=== PATIENT | female | born 1990 | race Native Hawaiian/Other Pacific Islander ===

== ENCOUNTER 2016-08-30 13:54 | Emergency (ER) | payer OTHER ==
[~2016-08-30] VITALS: Ht 157.5 cm; Wt 72.6 kg
[~2016-08-30 13:54] MED LIST: OMEPRAZOLE20 M2 OR; TRIM800T12 PO
[2016-08-30 14:35] LABS: PLATELET COUNT 289 K/uL (152-353)
[2016-08-30 14:54] LABS: POTASSIUM 3.7 mmol/L (3.6-5.2); SODIUM 132 mmol/L (136-145)
[2016-08-30 16:18] VITALS: BP 118/80; TEMP 98.7
== END 2016-08-30 16:35 | disposition home or self-care (01) ==
LOC: ED 13:54
DX: K80.80 Other cholelithiasis without obstruction (principal); R10.13 Epigastric pain
CPT/HCPCS: 36415; 80053; 81025; 85027; 86318; 99283; Q9963

== ENCOUNTER 2017-12-27 05:50 | Emergency (ER) | payer OTHER ==
[~2017-12-27] VITALS: Ht 157.5 cm; Wt 72.6 kg
[2017-12-27 06:11] VITALS: TEMP 98.6
[2017-12-27 07:12] LABS: POTASSIUM 3.1 mmol/L (3.6-5.2)
[2017-12-27 07:24] LABS: PLATELET COUNT 231 K/uL (152-353)
[2017-12-27 07:49] VITALS: BP 127/75
[2017-12-27] MEDS ORDERED: CIPRO500 MG PO (12:59)
[2017-12-27] MEDS ORDERED: PHEN100T3 PO (12:59)
== END 2017-12-27 07:50 | disposition home or self-care (01) ==
LOC: ED 05:50
DX: N10 Acute pyelonephritis (principal); R10.2 Pelvic and perineal pain
CPT/HCPCS: 80053; 81000; 85027; 87077; 87086; 87088; 87186; J1885; J2405

== ENCOUNTER 2017-12-27 12:42 | Emergency (ER) | payer OTHER ==
[~2017-12-27] VITALS: Ht 157.5 cm; Wt 72.6 kg
[2017-12-27 12:50] VITALS: TEMP 98.6
[2017-12-27] MEDS ORDERED: CIPRO500 MG PO (12:59)
[2017-12-27] MEDS ORDERED: PHEN100T3 PO (12:59)
[2017-12-27 13:18] LABS: PLATELET COUNT 242 K/uL (152-353)
[2017-12-27 13:25] LABS: POTASSIUM 3.3 mmol/L (3.6-5.2)
[2017-12-27 14:59] VITALS: BP 113/68
== END 2017-12-27 15:00 | disposition home or self-care (01) ==
LOC: ED 12:42
DX: R11.2 Nausea with vomiting, unspecified (principal)
CPT/HCPCS: 36415; 80053; 85027; 96365; 96374; 96375; 99284; J1885; J2405; J7120

== ENCOUNTER 2019-09-09 13:11 | Emergency (ER) | payer OTHER ==
[~2019-09-09] VITALS: Ht 157.5 cm; Wt 76.2 kg
[~2019-09-09 13:11] MED LIST changes: +CIPRO500 MG PO; +PHEN100T3 PO
[2019-09-09 15:35] VITALS: BP 156/75; TEMP 97.3
== END 2019-09-09 15:45 | disposition home or self-care (01) ==
LOC: ED 13:11
DX: J02.9 Acute pharyngitis, unspecified (principal); N39.0 Urinary tract infection, site not specified
CPT/HCPCS: 81000; 87077; 87086; 87088; 87186; 87502; 87651; 96372; 99283; J0696

== ENCOUNTER 2022-03-05 10:49 | Emergency (ER) | payer OTHER ==
[~2022-03-05] VITALS: Ht 157.5 cm; Wt 83.5 kg
[2022-03-05 11:00] VITALS: BP 150/84; TEMP 97
== END 2022-03-05 13:48 | disposition home or self-care (01) ==
LOC: ED 10:49
DX: M79.18 Myalgia, other site (principal); M54.59 Other low back pain; Z3A.29 29 weeks gestation of pregnancy
CPT/HCPCS: 81002; 84702; 99283